=== PATIENT | female | born 1955 | race Hispanic/Latino ===

== ENCOUNTER 2023-02-04 17:42 | Emergency (ER) | payer BC ==
--- OUTSIDE RECORDS SUMMARY | 2023-02-04 17:58 | XMS REPORT | Continuity of Care Document ---
:1955 Author Organization [facility] t Address [address] [facility]. [address] [place] [address] Care Team Providers Name Role Phone Asked, No Pcp Primary Care Physician Unavailable Niru Soliz Attending Clinician Unavailable BE LEIGH Attending Clinician Unavailable MARY KATE GONZALEZ Attending Clinician Unavailable MD TAMICA Attending Clinician Unavailable [id number] Attending Clinician Unavailable [id number] Attending Clinician Unavailable MELLY SOTO Attending Clinician Unavailable ALEX CHAN Attending Clinician Unavailable VERO MAYES Attending Clinician Unavailable TAN VILLARREAL Attending Clinician Unavailable Payers Payer Name Policy Type Policy Number Effective Date Expiration Date S ourayah BCBS 2 [id number] 2022 00:00:00 Blue Cross 6 [id number] Common Spiri t Blue Shield 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 05/2018 - recurred 08/2018. ? Trigger.P atient showed pictures on phone prior to going to the ER. 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 Son in law . Cigarette Cigarette Disease Active Rosendo solo nicotine nicotine 7-05 Seybol d dependence dependence 00:00: - with with 00 Externa nicotine-i nicotine-i l nduced nduced disorder disorder Essential Essential Disease Active 2014-05 Rosendo solo hypertensi hypertensi -12 Se ybold on on 00:00: - 00 Externa l Hyperlipem Hyperlipem Disease Active 2014-05 Hakeem lopezsusan ia ia 05-13 Seybold 00:00: - 00 Externa l History of History of Disease Active 2014-05 Hakeem lunsford CVA CVA 05-13 Seybold (cerebrova (cerebrova 00:00: - scular scular 00 Externa accident) accident) l Gastroesop Gastroesop Disease Active 2014-05 Hakeem lunsford hageal hageal 05-13 Seybold reflux reflux 00:00: - disease disease 00 Externa without without l esophagiti esophagiti s s Class 1 Class 1 Disease Active 2014-05 Irish obesity obesity 05-13 Seybold due to due to 00:00: - excess excess 00 Externa calories calories l with with serious serious comorbidit comorbidit y and body y and body mass index mass index (BMI) of (BMI) of 30.0 to 30.0 to 30.9 in 30.9 in adult adult [id number] Microcytic Problem Active Co mmon anemia [facility] [id number] Iron Problem Active Common deficiency Spirit anemia - [facility] secondary [facility] Med[facility] dietary Center iron intake [id number] Pure Problem Active Common hyperchole Spirit sterolemia - [facility] Allergies, Adverse Reactions, Alerts This patient has no known allergies or adverse reactions. Social History Social Habit Start Date Stop Date Quantity Comments Source Gender identity 2018-07-11 Identifies as Irish Joe - 15:35:18 female gender External (finding) [facility] Tobacco use and 2022-09-17 2022-09-17 Smokeless tobacco Alban Joe - exposure 00:00:00 00:00:00 non-user External Tobacco Comment 2022-09-17 2022-09-17 1 pack in 4 days Rosendo solo Separipaco - 00:00:00 00:00:00 External Alcohol Comment 2020-03-07 2020-03-07 every 2 - 3 weeks Alban padillabart Horowitzmary grace - 00:00:00 00:00:00 External History of Social 2018-12-21 2018-12-[address] function 00:00:00 00:00:00 Hospital Cigarettes smoked 2018-09-19 2018-09-[address] current (pack per 00:00:00 00:00:00 Hospita l day) - Reported Alcohol intake 2018-09-19 2018-09-19 Current drinker [facility] 00:00:00 00:00:00 of alcohol Hospital (finding) History of tobacco 2015-03-29 Cigarette Smoker Irish Joe - use 00:00:00 External Sex Ass[birth year] [facility] 00:[facility] Smoking Status Start Date Stop Date Source Smokes tobacco daily 2022-09-17 00:00:00 Irish Joe - External Medications Ordered Filled Start Stop Current Ordering Indication Dosage Frequency Signature Comments Components Source Medication Medication Date Date Medication? Clinician (SIG) Name Name Multiple Yes 1{capsu Take 1 Rosi ey Vitamin 5-19 le} capsule by Seybol d (MULTIVITAM 11:35: mouth - INS) oral 37 daily Externa Cap l Multiple Yes 1{capsu Take 1 Rosi ey Vitamin 5-19 le} capsule by Seybol d (MULTIVITAM 09:49: mouth - INS) oral 08 daily Externa Cap l Omeprazole Yes 40mg Take 1 Kelse y 40 MG oral 5-19 capsule Seybol d Delayed 00:00: (40 mg - Release 00 total) by Externa Capsule mouth l daily Rosuvastati Yes 10mg Take 1 Rosi ey n Calcium 5-19 tablet (10 Seyb old (Crestor) 00:00: mg total) - 10 MG oral 00 by mouth Exter na Tablet daily l Valsartan-h Yes 1{tbl} Take 1 Ke lsey ydroCHLOROt 5-19 tablet by Sey bold hiazide 00:00: mouth - 80-12.5 MG 00 daily Externa oral Tablet l Rosuvastati Yes 10mg Take 1 Rosi ey n Calcium 5-19 tablet (10 Seyb old (Crestor) 00:00: mg total) - 10 MG oral 00 by mouth Exter na Tablet daily l Valsartan-h Yes 1{tbl} Take 1 Ke lsey ydroCHLOROt 5-19 tablet by Sey bold hiazide 00:00: mouth - 80-12.5 MG 00 daily Externa oral Tablet l Rosuvastati Rosuvastati No 1{table QD Rosuvastat n Calcium n Calcium 8-26 t} in Calcium 40 MG 40 MG 00:00: 40 MG 00 Lisinopril Lisinopril No 1{table QD Lisinopril 20 MG 20 MG 7-29 t} 20 MG 00:00: 00 Lisinopril Lisinopril No 1{table QD Lisinopril 20 MG 20 MG 7-29 t} 20 MG 00:00: 00 Cyanocobala 2019-05 Yes 1000ug Inject Ke lsey min (VIT 2-28 1,000 mcg Seybol d B12) 1000 00:00: as - MCG/ML 00 directed Externa injection every 7 l Solution days SQ Cyanocobala 2019-05 Yes 1000ug Inject Ke lsey min (VIT 2-28 1,000 mcg Seybol d B12) 1000 00:00: as - MCG/ML 00 directed Externa injection every 7 l Solution days SQ Aspirin 81 2019-05 Yes 81mg Take 1 Kelse y MG oral 1-06 tablet (81 Seybol d Chew Tab 00:00: mg total) - 00 by mouth Externa daily l Aspirin 81 2019-05 Yes 81mg Take 1 Kelse y MG oral 1-06 tablet (81 Seybol d Chew Tab 00:00: mg total) - 00 by mouth Externa daily l B-D 3CC Yes USE Irish LUER-NISHANT 3-11 DIRECTED. Seybol d SYR 00:00: - 25GX5/8" 00 Externa 25G X 5/8" l 3 ML does not apply Misc B-D 3CC Yes USE Irish LUER-NISHANT 3-11 DIRECTED. Seybol d SYR 00:00: - 25GX5/8" 00 Externa 25G X 5/8" l 3 ML does not apply Misc Cyanocobala Yes [id number] One K elsey min 1000 5-31 1000mcg Seybold MCG/ML 00:00: injection - injection 00 SQ weekly Exter na Kit l Cyanocobala Yes [id number] One K elsey min 1000 5-31 1000mcg Seybold MCG/ML 00:00: injection - injection 00 SQ weekly Exter na Kit l Varenicline Varenicline No QD Vareniclin Tartrate Tartrate e Tartrate 0.5 MG X 11 0.5 MG X 11 0.5 MG X & 1 MG X 42 & 1 MG X 42 11 & 1 MG X 42 hydroCHLORO hydroCHLORO No 1{table QD hydroCHLOR thiazide thiazide t_in_th Othiazide 12.5 MG 12.5 MG e_morni 12.5 MG ng} hydroCHLORO hydroCHLORO No 1{table QD hydroCHLOR thiazide thiazide t_in_th Othiazide 12.5 MG 12.5 MG e_morni 12.5 MG ng} Varenicline Varenicline No QD Vareniclin Tartrate Tartrate e Tartrate 0.5 MG X 11 0.5 MG X 11 0.5 MG X & 1 MG X 42 & 1 MG X 42 11 & 1 MG X 42 Immunizations Ordered Filled Immunization Date Status Comments [facility] e Immunization Name Name Influenza Virus 2020-02-01 Completed Irish Horowitz ybold Vaccine, age 6 00:00:00 - External months and up Shingles IM 2020-02-01 Completed Irish Seybol d (Shingrix) 00:00:00 - External Influenza Virus 2020-02-01 Completed Irish Horowitz ybold Vaccine, age 6 00:00:00 - External months and up Shingles IM 2020-02-01 Completed Irish Horowitzybol d (Shingrix) 00:00:00 - External Shingles IM 2018-10-02 Completed Irish Horowitzybol d (Shingrix) 00:00:00 - External Shingles IM 2018-10-02 Completed Irish Horowitzybol d (Shingrix) 00:00:00 - External Influenza Virus 2017-06-01 Completed Irish ybold Vaccine, age 6 00:00:00 - External months and up Influenza Virus 2017-06-01 Completed Irish ybold Vaccine, age 6 00:00:00 - External months and up Influenza Virus 2015-03-13 Completed Irish Horowitz ybold Vaccine, age 6 00:00:00 - External months and up Influenza Virus 2015-03-13 Completed Irish yañezold Vaccine, age 6 00:00:00 - External months and up Tdap- (Boostrix, 2011-05-02 Completed Irish rhoades Adacel) 00:00:00 - External Tdap- (Boostrix, 2011-05-02 Completed Irish rhoades Adacel) 00:00:00 - External PFIZER COVID-19 Unknown Completed [facility] PFIZER COVID-19 Unknown Com[facility] Vital Signs Vital Name Observation Time Observation Value Comments Source Systolic blood 2022-09-17 16:30:00 148 mm[Hg] Irish Joe - pressure External Diastolic blood 2022-09-17 16:30:00 78 mm[Hg] Kelse y Seybold - pressure External Heart rate 2022-09-17 16:30:00 69 /min Irish Ji eybold - External Body temperature 2022-09-17 16:30:00 37.17 Laquita Rosi arriaga Seybold - External Body height 2022-09-17 16:30:00 149.9 cm Irish Ji eybold - External Body weight 2022-09-17 16:30:00 68.947 kg Irish Ji eybold - External BMI 2022-09-17 16:30:00 30.70 kg/m2 Irish Ji eybold - External Systolic blood 2022-09-17 15:11:00 196 mm[Hg] Irish Seybold - pressure External Diastolic blood 2022-09-17 15:11:00 86 mm[Hg] Maria Fernanda y Seybold - pressure External Heart rate 2022-09-17 14:47:00 55 /min Irish Ji eybold - External Body temperature 2022-09-17 14:47:00 36.72 Laquita Rosi arriaga Seybold - External Respiratory rate 2022-09-17 14:47:00 20 /min Rosi arriaga Seybold - External Body height 2022-09-17 14:47:00 149.9 cm Irish Ji eybold - External Body weight 2022-09-17 14:47:00 68.947 kg Irish Ji eybold - External BMI 2022-09-17 14:47:00 30.70 kg/m2 Irish Ji eybold - External Oxygen saturation in 2022-09-17 14:47:00 98 /min Irish Joe - Arterial blood by External Pulse oximetry height 2021-12-25 08:00:00 61 [in_i] [facility] weight 2021-12-25 08:00:00 154.6 [lb_av] Common [facility] temperature 2021-12-25 08:00:00 97.6 [degF] [facility] bmi 2021-12-25 08:00:00 29.21 kg/m2 [facility] oximetry 2021-12-25 08:00:00 98 % [facility] respiratory rate 2021-12-25 08:00:00 17 /min [facility] blood pressure 2021-12-25 08:00:00 136 mm[Hg] [facility] systolic [facility] blood pressure 2021-12-25 08:00:00 84 mm[Hg] [facility] diastolic [facility] height 2021-11-27 08:20:00 61 [in_i] [facility] weight 2021-11-27 08:20:00 154.2 [lb_av] [facility] temperature 2021-11-27 08:20:00 98.3 [degF] [facility] bmi 2021-11-27 08:20:00 29.13 kg/m2 [facility] oximetry 2021-11-27 08:20:00 97 % [facility] respiratory rate 2021-11-27 08:20:00 16 /min [facility] Procedures This patient has no known procedures. Plan of Care Planned Activity Planned Date Details Comments Source Future Scheduled 2023-01-05 Screening for [facility] Test 07:52:18 malignant neoplasm of colon (procedure) [code = 098027310] Future Scheduled 2023-01-05 Screening for [facility] Test 07:52:18 malignant neoplasm of colon (procedure) [code = 985731353] Future Scheduled 2023-01-05 Screening for [facility] Test 07:52:18 malignant neoplasm of colon (procedure) [code = 619513889] Future Scheduled 2023-01-05 BREAST CANCER [facility] Test 07:52:18 SCREENING [code = BREAST CANCER SCREENING] Future Scheduled 2023-01-05 Screening for [facility] Test 07:52:18 malignant neoplasm of colon (procedure) [code = 102149118] Future Scheduled 2023-01-05 Screening for [facility] Test 07:52:18 malignant neoplasm of colon (procedure) [code = 158666324] Future Scheduled 2023-01-05 SHINGLES VACCINES (1 [facility] Test 07:52:18 of 2) [code = SHINGLES VACCINES (1 of 2)] Future Scheduled 2023-01-05 65+ [facility]CCAL [facility] Test 07:52:18 VACCINE (1 - PCV) [code = 65+ PNEUMOCOCCAL VACCINE (1 - PCV)] Future Scheduled 2023-01-05 COVID-19 VACCINE (3 - [facility] Test 07:52:18 Pfizer series) [code = COVID-19 VACCINE (3 - Pfizer series)] Future Scheduled 2023-01-05 INFLUENZA VACCINE (#1) [facility] Test 07:52:18 [code = INFLUENZA VACCINE (#1)] Encounters Start End Encounter Admission Attending Care Care Encounter Source Date/Time Date/Time Type Type Clinicians Facility Department ID 2021-12-23 Outpatient Soliz, [facility] [id number] Common 09:02:04 Niru [id number] [facility] 2021-12-16 [facility] [id number] Common 14:21:00 Niru [id number] [facility] 2021-12-14 [facility] [id number] Common 10:51:02 Niur [facility] 2021-11-27 Outpatient Soliz, [facility] [id number] Common 08:09:01 Niru [id number] [facility] 2023-01-22 2023-01-22 Outpatient IRISH LEIGH [id number] Irish 00:00:00 00:00:00 BE Seybol d 2023-01-07 2023-01-07 Outpatient MARY KATE GONZALEZ [id number] Irish 00:00:00 00:00:00 Seybol d 2023-01-06 2023-01-06 Outpatient MARY KATE GONZALEZ [id number] Irish 00:00:00 00:00:00 Seybol d 2022-12-23 2022-12-23 Outpatient MARY KATE GONZALEZ [id number] Irish 00:00:00 00:00:00 Seybol d 2022-12-09 2022-12-09 Outpatient IRISH LEIGH [id number] Irish 00:00:00 00:00:00 BE Seybol d 2022-10-23 2022-10-23 Outpatient IRISH LEIGH [id number] Irish 00:00:00 00:00:00 BE Seybol d 2022-10-17 2022-10-17 Outpatient IRISH LEIGH [id number] Irish 00:00:00 00:00:00 BE Seybol d 2022-10-07 2022-10-07 Outpatient MARY KATE GONZALEZ [id number] Irish 00:00:00 00:00:00 Seybol d 2022-10-07 2022-10-07 Outpatient JOSÉ MIGUEL KELSEY [id number] Irish 00:00:00 00:00:00 MD JAY JAY Seybol d 2022-10-07 2022-10-07 Outpatient JOSÉ MIGUEL KELSEY [id number] Irish 00:00:00 00:00:00 MD JAY JAY Seybol d 2022-09-30 2022-09-30 Outpatient MARY KATE GONZALEZ [id number] Irish 06:00:00 06:00:00 Seybol d 2022-09-28 2022-09-28 Outpatient MARY KATE GONZALEZ [id number] Irish 00:00:00 00:00:00 Seybol d 2022-09-22 2022-09-22 Outpatient JOSÉ MIGUEL KELSEY [id number] Irish 00:00:00 00:00:00 MD JAY JAY Seybol d 2022-09-18 2022-09-18 Outpatient LAB91 IRISH KELSEY [id number] Irish 12:35:00 12:35:00 Seybol d 2022-09-17 2022-09-17 Outpatient MARY KATE GONZALEZ [id number] Irish 11:40:00 11:40:00 Seybol d 2022-09-17 2022-09-17 Outpatient LAB91 IRISH KELSEY [id number] Irish 10:45:00 10:45:00 Seybol d 2022-09-17 2022-09-17 Outpatient REESEIRISH [id number] Irish 09:45:00 09:45:00 BE Seybol d 2022-09-17 2022-09-17 Outpatient CORRINE IRISH KELSEY [id number] Irish 09:00:00 09:00:00 Seybol d 2022-09-17 2022-09-17 Outpatient IRISH SOTO [id number] Irish 08:30:00 08:30:00 MELLY Seybol d 2022-09-17 2022-09-17 Outpatient ALEX CHAN IRISH KELSEY [id number] Irish 00:00:00 00:00:00 Seybol d 2021-12-25 2021-12-25 OFFICE [facility] [id number] Co mmon 00:00:00 00:00:00 VISIT Spirit ESTAB PT - [facility] LEVEL 4 [facility] 2021-11-27 2021-11-27 OFFICE [facility]C STL[facility]C [id number] Co mmon 00:00:00 00:00:00 VISIT NEW Spir it PT LEVEL 4 - [facility] 2021-11-23 2021-11-23 Outpatient IRISH MAYES [id number] Irish 10:00:00 10:00:00 VERO Cornejool destinee 2020-07-29 2020-07-29 Outpatient CHERELLE [facility] [id number] [place] 00:00:00 00:00:[address] 2020-07-08 2020-07-08 Outpatient [facility] [id number] [place] 00:00:00 00:00:[address] Results This patient has no known results.
[2023-02-04] MEDS ORDERED: ACETAMINOPHEN 325 MG TABLET ONE (18:32)
--- NOTE | 2023-02-04 20:07 | EDPHYS ---
Physician Documentation [facility] Name: Johanny Silva Age: 67 yrs Sex: Female : 1955 Arrival Date: 02/04/2023 Time: 17:42 Bed 11 Private MD: ED Physician Lee Franklin HPI: 02/04 18:39 This 67 yrs old Female presents to ER via Ambulatory with complaints of Cough, rn body aches, chills. 18:39 The patient or guardian reports cough, flu symptoms, low-grade fever, myalgias. Onset: rn The symptoms/episode began/occurred 2 day(s) ago. Severity of symptoms: At their worst the symptoms were mild, in the emergency department the symptoms are unchanged. Modifying factors: The symptoms are alleviated by nothing, the symptoms are aggravated by nothing. Associated signs and symptoms: Pertinent positives: fever, rhinorrhea, sore throat, Pertinent negatives: chest pain, vomiting. The patient has not experienced similar symptoms in the past. The patient has not recently seen a physician. Historical: - Allergies: 17:52 No Known Allergies; hb - Home Meds: 17:52 Simvastatin Oral [Active]; unknown HTN med [Active]; hb - PMHx: 17:52 Cerebrovascular accident; Hypertensive disorder; hb - PSHx: 17:52 Cholecystectomy; neck; hb - Immunization history:: Adult Immunizations up to date. - Social history:: Smoking status: Patient reports the use of cigarette tobacco products, smokes one-half pack cigarettes per day. - Family history:: not pertinent. - Hospitalizations: : No recent hospitalization is reported. ROS: 18:39 Constitutional: Positive for fever and chills and myalgias Eyes: Negative for injury, rn pain, redness, and discharge, ENT: Positive for runny nose and sore throat Cardiovascular: Negative for chest pain, palpitations, and edema, Respiratory: Positive for cough, negative for shortness of breath Abdomen/GI: Negative for abdominal pain, nausea, vomiting, diarrhea, and constipation, MS/Extremity: Negative for injury and deformity, Skin: Negative for injury, rash, and discoloration, Neuro: Negative for headache, weakness, numbness, tingling, and seizure, Exam: 18:39 Constitutional: This is a well developed, well nourished patient who is awake, alert, rn and in no acute distress. Eyes: Pupils equal round and reactive to light, extra-ocular motions intact. ENT: Mild pharyngeal erythema, no stridor, uvula midline Neck: Nontender cervical lymphadenopathy Cardiovascular: Regular rate and rhythm. No pulse deficits. Respiratory: No increased work of breathing, no retractions or nasal flaring. Abdomen/GI: Soft, non-tender Skin: Warm, dry MS/ Extremity: Pulses equal, no cyanosis. Neuro: Awake and alert, GCS 15 Vital Signs: 17:50 BP 172 / 94; Pulse 78; Resp 16; Temp 99(TE); Pulse Ox 97% on R/A; Weight 68.04 kg; hb Height 5 ft. 1 in. ; Pain 6/10; 17:50 Body Mass Index 28.34 (68.04 kg, 154.94 cm) hb 17:50 Pain Scale: Adult hb MDM: 17:46 Patient medically screened. rn 20:03 Differential Diagnosis: Bronchitis Influenza Upper Respiratory Infection Pharyngitis rn Viral Syndrome Pneumonia. Data reviewed: vital signs, nurses notes, lab test result(s), and as a result, I will discharge patient. Counseling: I had a detailed discussion with the patient and/or guardian regarding the historical points, exam findings, and any diagnostic results supporting the discharge/admit diagnosis, lab results, the need for outpatient follow up, to return to the emergency department if symptoms worsen or persist or if there are any questions or concerns that arise at home. Special discussion: I discussed with the patient/guardian in detail that at this point there is no indication for admission to the hospital. It is understood, however, that if the symptoms persist or worsen the patient needs to return immediately for re-evaluation. 02/04 18:03 Order name: COVID-19 SARS RT PCR rn 02/04 18:03 Order name: Flu rn 02/04 18:03 Order name: Strep rn 02/04 18:58 Order name: Throat Culture EDMS Administered Medications: 18:21 Drug: Acetaminophen PO 650 mg PO once Route: PO; hb Disposition Summary: 02/04/23 20:07 Discharge Ordered Notes: Location: Home rn Problem: new rn Symptoms: have improved rn Condition: Stable rn Diagnosis - Acute upper respiratory infection, unspecified rn - Fever, unspecified rn Followup: rn - With: Private Physician - When: As needed - Reason: Recheck today's complaints, Re-evaluation by your physician Discharge Instructions: - Discharge Summary Sheet rn - Upper Respiratory Infection, Adult rn Forms: - Medication Reconciliation Form rn - Thank You Letter rn - 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 Day 2, 3, 4 , 5 take one (1) tablet once daily.; 6 tablet; Refills: 0, Product Selection Permitted Signatures: Dispatcher [employer] EDLee Kovacs MD MD rn Baxter, Heather, RN RN hb
--- NOTE | 2023-02-04 20:07 | ER ---
Nurse's Notes [id number] Name: Johanny Silva Age: 67 yrs Sex: Female : 1955 Arrival Date: 02/04/2023 Time: 17:42 Bed 11 Private MD: Diagnosis: Acute upper respiratory infection, unspecified;Fever, unspecified Presentation: 02/04 17:50 Chief complaint: Body aches, sore throat, chills, cough, sinus congestion, and headache hb x 2 days. Coronavirus screen: Client presents with at least one sign or symptom that may indicate coronavirus-19. Provider contacted for isolation considerations. Ebola Screen: No symptoms or risks identified at this time. Initial Sepsis Screen: Does the patient meet any 2 criteria? No. Patient's initial sepsis screen is negative. Does the patient have a suspected source of infection? No. Patient's initial sepsis screen is negative. Risk Assessment: Do you want to hurt yourself or someone else? Patient reports no desire to harm self or others. Onset of symptoms was February 03, 2023. 17:50 Method Of Arrival: Ambulatory hb 17:50 Acuity: TRIST[place] 4 hb Triage Assessment: 17:51 General: Appears in no apparent distress. Behavior is calm, cooperative. Pain: Pain hb currently is 6 out of 10 on a pain scale. EENT: Reports sinus congestion, sore throat. Neuro: Level of Consciousness is awake, alert, obeys commands, Oriented to person, place, time, situation. Cardiovascular: Patient's skin is warm and dry. Respiratory: Reports cough that is Respiratory effort is even, unlabored, Respiratory pattern is regular, symmetrical. Historical: - Allergies: 17:52 No Known Allergies; hb - Home Meds: 17:52 Simvastatin Oral [Active]; unknown HTN med [Active]; hb - PMHx: 17:52 Cerebrovascular accident; Hypertensive disorder; hb - PSHx: 17:52 Cholecystectomy; neck; hb - Immunization history:: Adult Immunizations up to date. - Social history:: Smoking status: Patient reports the use of cigarette tobacco products, smokes one-half pack cigarettes per day. - Family history:: not pertinent. - Hospitalizations: : No recent hospitalization is reported. Screenin:57 [facility] ED Fall Risk Assessment (Adult) Score/Fall Risk Level 0 - 2 = Low Risk hb Oriented to surroundings, Maintained a safe environment. Abuse screen: Denies threats or abuse. Denies injuries from another. Nutritional screening: No deficits noted. Tuberculosis screening: No symptoms or risk factors identified. Assessment: 17:57 General: See triage assessment. hb Vital Signs: 17:50 BP 172 / 94; Pulse 78; Resp 16; Temp 99(TE); Pulse Ox 97% on R/A; Weight 68.04 kg; hb Height 5 ft. 1 in. ; Pain 6/10; 17:50 Body Mass Index 28.34 (68.04 kg, 154.94 cm) hb 17:50 Pain Scale: Adult hb ED Course: 17:46 Patient arrived in ED. gm2 17:46 Lee Franklin MD is Attending Physician. rn 17:52 Triage completed. hb 17:54 Arm band placed on. hb 17:57 Patient has correct armband on for positive identification. Provided Education on: . hb 17:57 No provider procedures requiring assistance completed. Patient did not have IV access hb during this emergency room visit. 18:21 Strep Sent. hb 18:21 Flu Sent. hb 18:21 COVID-19 SARS RT PCR Sent. hb 19:19 Анна Lucas, RN is Primary Nurse. iw Administered Medications: 18:21 Drug: Acetaminophen PO 650 mg PO once Route: PO; hb Medication: 17:57 VIS not applicable for this client. hb Outcome: 20:07 Discharge ordered by . rn 20:14 Patient left the ED. iw Signatures: Анна Lucas, RN DIANE Lee Franklin MD MD rn Baxter, Heather, RN RN hb Mitchell, Ginger gm2 Corrections: (The following items were deleted from the chart) 17:57 17:50 Chief complaint: Body aches, sore throat, chills, cough, sinus congestion, and hb headache x 2 days hb
[2023-02-04 20:20] VITALS: BP 172/94; TEMP 99; O2SAT 97
== END 2023-02-04 20:14 | disposition home or self-care (01) ==
LOC: ER 17:42
DX: J06.9 Acute upper respiratory infection, unspecified (principal); R50.9 Fever, unspecified; F17.210 Nicotine dependence, cigarettes, uncomplicated; I10 Essential (primary) hypertension; Z20.822 Contact with and (suspected) exposure to COVID-19; Z86.73 Personal history of transient ischemic attack (TIA), and cerebral infarction without residual deficits
CPT/HCPCS: 87070; 87081; 87635; 87804; 99283